=== PATIENT | male | born 1965 | race Caucasian/White ===

== ENCOUNTER 2017-06-20 15:10 | Emergency (ER) | payer OTHER ==
[~2017-06-20] VITALS: Ht 180.3 cm; Wt 85.3 kg
--- NOTE | 2017-06-20 15:20 | NUR ---
Note kenneth in EDM - 06/20/17 at 1750 by GRETCHEN NECK AND BACK ACHING SINCE TUESDAY, PASSED OUT LAST NIGHT. SENT BY PMD TO GET A CT. NAD NOTED, VSS, RESP EVEN AND UNLABORED, PT WAS PUT ON MONITOR. WAITING FOR MD MISHRA.
--- NOTE | 2017-06-20 15:20 | NUR ---
NECK AND BACK ACHING SINCE TUESDAY, PASSED OUT LAST NIGHT. SENT BY PMD TO GET A CT. NAD NOTED, VSS, RESP EVEN AND UNLABORED, PT WAS PUT ON MONITOR. AT BS.
[2017-06-20 16:49] LABS: BASOPHILS % (AUTO) 0.6 % (0.0-2.0); EOSINOPHILS % (AUTO) 0.6 % (0.0-6.0); HEMATOCRIT 46 % (39-51); LYMPHOCYTES # (AUTO) 1.6 /CMM (0.8-4.8); LYMPHOCYTES % (AUTO) 26.9 % (20.0-44.0); MEAN CORPUSCULAR HGB CONC 35 g/dl (31.0-36.0); MEAN CORPUSCULAR VOLUME 89 fL (80-96); MONOCYTES # (AUTO) 0.7 /CMM (0.1-1.30); MONOCYTES % (AUTO) 11.9 % (2.0-12.0); NEUTROPHILS # (AUTO) 3.5 /CMM (1.8-8.9); PLATELET COUNT (AUTO) 181 /CMM (150-450); RDW COEFFICIENT OF VARIATION 12.3 (11.5-15.0); RED BLOOD CELL COUNT(AUTO) 5.21 MIL/uL (4.5-6.0); WHITE BLOOD COUNT (AUTO) 5.9 K/uL (4.3-11.0)
[2017-06-20 16:59] LABS: CARBON DIOXIDE 31 mmol/L (21-32); CHLORIDE 105 mmol/L (98-107); CREATININE 1.3 mg/dL (0.6-1.3); GLUCOSE 99 mg/dL (74-106); POTASSIUM 3.7 mmol/L (3.5-5.1); SODIUM SERUM 143 mmol/L (136-145); UREA NITROGEN, BLOOD 24 mg/dL (7-18)
[2017-06-20 17:05] LABS: ALANINE AMINOTRANSFERASE 28 U/L (12-78); ALBUMIN 3.7 g/dL (3.4-5.0); ALKALINE PHOSPHATASE 82 U/L (46-116); ASPARTATE AMINOTRANSFERASE 19 U/L (15-37); BILIRUBIN,DIRECT 0.1 mg/dL (0.0-0.2); BILIRUBIN,TOTAL 0.5 mg/dL (0.2-1.0); TOTAL PROTEIN, SERUM 7.7 g/dL (6.4-8.2)
[2017-06-20 17:11] LABS: TROPONIN I < 0.017 ng/mL (0.00-0.056)
[2017-06-20 17:48] VITALS: BP 124/75
--- NOTE | 2017-06-20 17:49 | NUR ---
Patient discharged to home in stable condition. Written and verbal after care instructions given. Patient verbalizes understanding of instruction.
== END 2017-06-20 17:50 | disposition home or self-care (01) ==
LOC: ER 15:14
DX: E86.0 Dehydration (principal); R55 Syncope and collapse; I10 Essential (primary) hypertension
CPT/HCPCS: 36415; 71045-TC; 80048-TC; 80076-TC; 84484-TC; 85025-TC; A4606; Z7610